=== PATIENT | male | born 1980 | race Caucasian/White ===

== ENCOUNTER 2021-01-29 10:48 | Emergency (ER) | payer OTHER, MEDICAID ==
[~2021-01-29] VITALS: Ht 198.1 cm; Wt 136.1 kg
[2021-01-29 10:51] VITALS: BP 159/93
== END 2021-01-29 12:16 | disposition home or self-care (01) ==
LOC: ER 10:48
DX: T16.1XXA Foreign body in right ear, initial encounter (principal); X58.XXXA Exposure to other specified factors, initial encounter; Y93.89 Activity, other specified; Y92.89 Other specified places as the place of occurrence of the external cause; Y99.8 Other external cause status
CPT/HCPCS: 69200

== ENCOUNTER 2023-02-02 17:13 | Inpatient (IN) | payer OTHER, MEDICAID ==
[~2023-02-02] VITALS: Ht 198.1 cm; Wt 152.0 kg
[2023-02-02 17:57] LABS: Basophils # (auto) 0.1 10 ^3/uL (0-0.2); Eosinophils # (auto) 0.1 10 ^3/uL (0-0.8); Eosinophils % (auto) 1.2 % (0.0-7.0); Hematocrit 50.1 % (41.0-53.0); Hemoglobin 16.7 g/dL (13.5-17.5); Lymphocytes # (auto) 3.3 10 ^3/uL (0.4-5.4); Mean Corpuscular Hgb Conc. 33.2 g/dL (32.0-36.0); Mean Corpuscular Volume 87.2 fL (80.0-100.0); Monocytes # (auto) 0.8 10 ^3/uL (0-1.3); Monocytes % (auto) 7.2 % (0.0-12.0); Neutrophils # (auto) 7.1 10 ^3/uL (1.6-8.6); Neutrophils % (auto) 61.6 % (37.0-80.0); Nucleated Red Blood Cells % 0.2 %; Red Blood Cells 5.75 10^6/uL (4.5-5.90); Red Cell Distribution Width 14.4 % (11.8-14.3); White Blood Cell 11.5 10^3/uL (4.4-10.8)
[2023-02-02 18:11] LABS: Albumin 3.7 g/dL (3.4-5.0); Calcium 9.1 mg/dL (8.5-10.1); Magnesium 2.4 mg/dL (1.6-2.6); Potassium 3.8 mmol/L (3.5-5.1)
[2023-02-02 18:14] LABS: BUN/Creatinine Ratio 11.5 (10.0-20.0); Bilirubin, Total 0.4 mg/dL (0.2-1.0); Total Protein 7.8 g/dL (6.4-8.2)
[2023-02-02] MEDS ORDERED: IOHEXOL 350 MG/ML 100ML IJ ONE (20:27)
[2023-02-03] MEDS ORDERED: TEMAZEPAM 15 MG CAP PO PRN (02:45)
[2023-02-03] MEDS ORDERED: ACETAMINOPHEN 325 MG TAB PO PRN (02:45)
[2023-02-03] MEDS ORDERED: NITROGLYCERIN 0.4 MG SL TAB SL PRN (02:45)
[2023-02-03] MEDS ORDERED: MORPHINE SULFATE INJ 2 MG/ml SYRG IV PRN ×2 (02:45→11:30)
[2023-02-03] MEDS ORDERED: ONDANSETRON HCL 4 MG/2 ML VIAL IV PRN (02:45)
[2023-02-03] MEDS ORDERED: ADENOSINE 114 MG in GIVE UN-DILUTED 0 ML IV STA (08:38)
[2023-02-03 09:50] VITALS: BP 126/89
[2023-02-03] MEDS ORDERED: ASPirin 81 mg TAB PO SCH (10:00)
[2023-02-03] MEDS ORDERED: LISINOPRIL 10 MG TAB PO SCH (10:00)
[2023-02-03] MEDS ORDERED: PANTOPRAZOLE 40 MG TAB PO SCH (10:00)
[2023-02-03 11:29] LABS: Cholesterol 166 mg/dL (< 200); HDL Cholesterol 41 mg/dL (40-59); LDL Cholesterol 113 mg/dL (< 100); Triglycerides 114 mg/dL (< 150)
[2023-02-03] MEDS: SODIUM CHLORIDE 0.9% 1,000 ML IV SCH (16:30)
[2023-02-03 17:20] VITALS: BP 109/63
[2023-02-03] MEDS: PANTOPRAZOLE 40 MG TAB PO SCH (21:31)
[2023-02-03] MEDS: ATORVASTATIN 20 MG TAB PO SCH (21:32)
[2023-02-03] MEDS: HYDROcodone-ACET 10/325MG TAB PO PRN (21:55)
[2023-02-03 22:00] VITALS: BP 104/60
[2023-02-04 04:54] VITALS: BP_SYST 119; BP_SYST 142; BP_DIAS 64; BP_DIAS 74
[2023-02-04] MEDS: SODIUM CHLORIDE 0.9% 1,000 ML IV SCH ×2 (06:07→18:15)
[2023-02-04] MEDS: SUCRALFATE 1 GM/10 ML ORAL SUSP PO SCH ×3 (06:28→16:58)
[2023-02-04 07:13] LABS: Potassium 4.2 mmol/L (3.5-5.1)
[2023-02-04 07:17] LABS: BUN/Creatinine Ratio 14.8 (10.0-20.0); Calcium 8.8 mg/dL (8.5-10.1)
[2023-02-04] MEDS: CYCLOBENZAPRINE HCL 10 MG TAB PO PRN ×2 (07:45→16:58)
[2023-02-04] MEDS: PANTOPRAZOLE 40 MG TAB PO SCH ×2 (07:45→22:26)
[2023-02-04] MEDS: HYDROcodone-ACET 10/325MG TAB PO PRN ×3 (07:46→23:06)
[2023-02-04 09:00] VITALS: BP 138/76
[2023-02-04 13:00] VITALS: BP 132/70
[2023-02-04 16:56] VITALS: BP 122/57
[2023-02-04 22:00] VITALS: BP 133/70
[2023-02-04] MEDS: SACUBITRIL-VALSARTAN 24mg/26mg TAB PO SCH (22:26)
[2023-02-04] MEDS: ATORVASTATIN 20 MG TAB PO SCH (22:28)
[2023-02-04] MEDS: METOPROLOL TARTRATE 25 MG TAB PO SCH (22:54)
[2023-02-05 05:00] VITALS: BP 131/74
[2023-02-05] MEDS: SUCRALFATE 1 GM/10 ML ORAL SUSP PO SCH ×2 (06:44→10:13)
[2023-02-05 08:00] VITALS: BP 128/86
[2023-02-05 08:35] VITALS: BP 126/86
[2023-02-05] MEDS: SACUBITRIL-VALSARTAN 24mg/26mg TAB PO SCH (10:09)
[2023-02-05] MEDS: METOPROLOL TARTRATE 25 MG TAB PO SCH (10:12)
[2023-02-05] MEDS: PANTOPRAZOLE 40 MG TAB PO SCH (10:12)
[2023-02-05] MEDS ORDERED: MET25T PO (12:39)
[2023-02-05] MEDS ORDERED: PANT40T PO (12:39)
[2023-02-05] MEDS ORDERED: MISC-412 XX (12:39)
[2023-02-05 12:40] VITALS: BP 146/74
[2023-02-05 13:23] VITALS: BP 146/74
[2023-02-05 22:00] VITALS: BP 111/67
== END 2023-02-05 14:30 | disposition home or self-care (01) | DRG 392 ==
LOC: ER 17:13 → TELE 02-03 02:37 → TELE-WESTW 02-03 16:46
PROVIDERS: ADMIT Nurse Practitioner; ATTEND Nurse Practitioner Acute Care
DX: K21.00 Gastro-esophageal reflux disease with esophagitis, without bleeding (principal); K22.70 Barrett's esophagus without dysplasia; E66.01 Morbid (severe) obesity due to excess calories; G89.4 Chronic pain syndrome; H81.10 Benign paroxysmal vertigo, unspecified ear; H91.90 Unspecified hearing loss, unspecified ear; I10 Essential (primary) hypertension; M79.7 Fibromyalgia; E11.42 Type 2 diabetes mellitus with diabetic polyneuropathy; Z20.822 Contact with and (suspected) exposure to COVID-19; R00.0 Tachycardia, unspecified; R07.89 Other chest pain; R51.9 Headache, unspecified; Z79.899 Other long term (current) drug therapy; Z83.3 Family history of diabetes mellitus; Z85.830 Personal history of malignant neoplasm of bone; Z86.73 Personal history of transient ischemic attack (TIA), and cerebral infarction without residual deficits; Z89.511 Acquired absence of right leg below knee; Z89.611 Acquired absence of right leg above knee
CPT/HCPCS: 36415; 70450; 71045; 71275; 78452; 80048; 80053; 80061; 83036; 83735; 83880; 84443; 84484; 85025; 85379; 85652; 86141; 87426; 93005; 93017; 93306; G0378; J0153